=== PATIENT | male | born 1985 | race Caucasian/White ===

== ENCOUNTER 2020-11-16 09:30 | Emergency (ER) | payer MEDICAID ==
[~2020-11-16] VITALS: Ht 170.2 cm; Wt 70.0 kg
[2020-11-16 09:50] VITALS: BP 144/88
[2020-11-16] MEDS ORDERED: SODIUM CHLORIDE 0.9% 1,000 ML IV ONE (10:00)
[2020-11-16 10:25] LABS: CHLORIDE 98 mEq/L (98-107)
[2020-11-16 10:28] LABS: ETHANOL BLOOD 124 mg/dL
[2020-11-16 10:57] LABS: BASOPHILS % 0.8 % (0.0-2.0); EOSINOPHILS % 2.7 % (0.0-5.0); HEMATOCRIT. 42.8 % (42.0-52.0); HEMOGLOBIN. 15.6 g/dL (14.0-18.0); LYMPHOCYTES % 27.1 % (20.0-50.0); MEAN CORPUSCULAR HEMOGLOBIN 32.5 pg (28.0-32.0); MEAN PLATELET VOLUME 6.7 fl (7.4-10.4); MONOCYTES % 7.4 % (2.0-8.0); PLATELET 169 x1000/uL (130-400); RED BLOOD CELL COUNT 4.81 mill/uL (4.7-6.1); RED CELL DISTRIBUTION WIDTH 12.7 % (11.6-14.6)
== END 2020-11-16 12:37 | disposition home or self-care (01) ==
LOC: ER 09:30
DX: F10.229 Alcohol dependence with intoxication, unspecified (principal); Y90.6 Blood alcohol level of 120-199 mg/100 ml
CPT/HCPCS: 36415; 80053; 80320; 85025; 93005; 96360; 99284; J7030; Z7610; G0480

== ENCOUNTER 2022-04-18 11:50 | Emergency (ER) | payer SELFPAY ==
[~2022-04-18] VITALS: Ht 154.9 cm; Wt 91.0 kg
[2022-04-18 11:53] VITALS: BP 130/77
[2022-04-18 12:21] LABS: CHLORIDE 101 mEq/L (98-107)
[2022-04-18 12:26] LABS: EOSINOPHILS % 3.7 % (0.0-5.0); HEMATOCRIT. 46.7 % (42.0-52.0); HEMOGLOBIN. 16.4 g/dL (14.0-18.0); LYMPHOCYTES % 26.8 % (20.0-50.0); MONOCYTES % 6.4 % (2.0-8.0); NEUTROPHILS % 62.1 % (40.0-76.0); PLATELET 208 x1000/uL (130-400); RED BLOOD CELL COUNT 5.13 mill/uL (4.7-6.1); RED CELL DISTRIBUTION WIDTH 13.7 % (11.6-14.6)
[2022-04-18 12:29] LABS: ETHANOL BLOOD 152 mg/dL
[2022-04-18 12:48] LABS: *AMPHETAMINES SCREEN URINE NEGATIVE (NEGATIVE); *BARBITURATES SCREEN URINE NEGATIVE (NEGATIVE); *BENZODIAZEPINES SCREEN URINE NEGATIVE (NEGATIVE); *COCAINE SCREEN URINE NEGATIVE (NEGATIVE); CANNABINOID URINE SCREEN NEGATIVE (NEGATIVE); METHADONE URINE SCREEN NEGATIVE (NEGATIVE); OPIATES URINE SCREEN NEGATIVE (NEGATIVE); PHENCYCLIDINE URINE SCREEN NEGATIVE (NEGATIVE)
[2022-04-18] MEDS ORDERED: POTASSIUM CHLORIDE 20MEQ TABLET SR PO ONE (13:15)
[2022-04-18] MEDS ORDERED: ONDANSETRON 4MG ODT PO ONE (13:15)
[2022-04-18] MEDS ORDERED: CHLORDIAZEPOXIDE 25MG CAPSULE PO ONE (13:15)
== END 2022-04-18 13:30 | disposition home or self-care (01) ==
LOC: ER 11:50
DX: T51.0X1A Toxic effect of ethanol, accidental (unintentional), initial encounter (principal); E87.6 Hypokalemia; Y90.6 Blood alcohol level of 120-199 mg/100 ml; Y92.018 Other place in single-family (private) house as the place of occurrence of the external cause
CPT/HCPCS: 36415; 80053; 80305; 80320; 85025; 99284; Q0162; G0480